=== PATIENT | male | born 1970 | race Two or more races ===

== ENCOUNTER 2021-11-21 12:15 | Emergency (ER) | payer OTHER ==
[~2021-11-21] VITALS: Ht 167.6 cm; Wt 78.8 kg
[2021-11-21 17:00] VITALS: BP 146/78
[2021-11-21] MEDS ORDERED: LIDOCAINE 1% HCL (LOCAL ANESTH.) INJ 20ML MDV SC ONE (17:15)
[2021-11-21] MEDS ORDERED: IBUPROFEN 600 MG TAB PO ONE (17:15)
[2021-11-21] MEDS ORDERED: CEPH-510 PO (18:22)
== END 2021-11-21 18:28 | disposition home or self-care (01) ==
LOC: ER 12:15
DX: S71.112A Laceration without foreign body, left thigh, initial encounter (principal); Z79.899 Other long term (current) drug therapy; W26.8XXA Contact with other sharp object(s), not elsewhere classified, initial encounter; Y93.89 Activity, other specified; Y92.89 Other specified places as the place of occurrence of the external cause; Y99.0 Civilian activity done for income or pay
CPT/HCPCS: 12002; 71046; 99283; J2001